=== PATIENT | female | born 1970 | race Caucasian/White ===

== ENCOUNTER → 2016-05-06 | Outpatient (CLI) | payer BC | LOC: COL.LAB 13:27 | DX: Z02.83 Encounter for blood-alcohol and blood-drug test (principal) ==

== ENCOUNTER 2018-07-11 08:55 | Day surgery (SDC) | payer BC ==
[~2018-07-11] VITALS: Ht 160 cm; Wt 69.5 kg
[2018-07-11] MEDS ORDERED: ZOLOFT 50MG50 MG PO (09:11)
[2018-07-11] MEDS ORDERED: CANASA 1000MG1000 MG RC (09:12)
[2018-07-11] MEDS ORDERED: ENTOCORT EC3 MG PO (09:13)
[2018-07-11] MEDS ORDERED: VITAMIND3 5000 IU (09:14)
[2018-07-11 09:31] VITALS: BP 115/75; PULSE 75; TEMP 97.8
[2018-07-11] MEDS ORDERED: ROWASA ENEMA60 ML RC (10:45)
[2018-07-11 10:50] VITALS: BP 137/88; PULSE 79; TEMP 98.1
--- NOTE | 2018-07-11 10:50 | NUR ---
Pt arrived to room from endo procedure. Pt A/Ox3. Pt walked to chair with steady gait, standby assist. Pt denies any nausea. Request water and crackers at this time. VSS. Pt's in room. CAll light in reach. Report received from CRYSTAL Mina.
[2018-07-11 11:05] VITALS: BP 134/71; PULSE 79; TEMP 98.1
--- NOTE | 2018-07-11 11:10 | NUR ---
Pt tolerating sips of water and crackers. Denies any nausea.
[2018-07-11 11:20] VITALS: BP 123/63; PULSE 78; TEMP 98.1
[2018-07-11 11:35] VITALS: BP 123/74; PULSE 68; TEMP 98.2
--- NOTE | 2018-07-11 12:00 | NUR ---
Discharge paperwork given to pt and pt's . Discussed discharge instructions, med list and procedure information. All questions answered to their satisfaction.
--- NOTE | 2018-07-11 12:10 | NUR ---
Pt discharged from [facility]. Pt left unit via wheelchair to private vehicle driven by .
== END 2018-07-11 12:10 | disposition home or self-care (01) ==
LOC: SDCO 08:55
DX: K51.311 Ulcerative (chronic) rectosigmoiditis with rectal bleeding (principal); K51.90 Ulcerative colitis, unspecified, without complications; Z79.899 Other long term (current) drug therapy
CPT/HCPCS: J2250; J2405; J3010; J7030

== ENCOUNTER 2021-09-15 07:25 | Day surgery (SDC) | payer OTHER ==
[~2021-09-15] VITALS: Ht 162.6 cm; Wt 73.4 kg
[~2021-09-15 07:25] MED LIST: CANASA 1000MG1000 MG RC; ENTOCORT EC3 MG PO; ROWASA ENEMA60 ML RC; VITAMIND3 5000 IU; ZOLOFT 50MG50 MG PO
[2021-09-15] MEDS ORDERED: CELEBREX 200MG200 MG PO (08:02)
[2021-09-15] MEDS ORDERED: VITAMINC1000TA (08:03)
[2021-09-15] MEDS ORDERED: PROBIOTIC (08:03)
[2021-09-15 08:12] VITALS: BP 118/55; PULSE 68; TEMP 98.4
--- NOTE | 2021-09-15 08:30 | NUR ---
MANAGER INTEL notified about PT history of N/V after Anesthesia, who recommended the ordered dose of Zofran. IV medication administered per protocol. PT verbalized understanding side effects prior to administration. Call freeman remains within reach.
[2021-09-15 09:50] VITALS: BP 104/48; PULSE 72; TEMP 98.4
--- NOTE | 2021-09-15 09:50 | NUR ---
pt returned to [facility] via cart from endo room, walked to chair. takes snack, in room, call light in reach, no c/o
[2021-09-15 10:05] VITALS: BP 108/65; PULSE 66
[2021-09-15 10:25] VITALS: BP 110/58; PULSE 68
--- NOTE | 2021-09-15 10:30 | NUR ---
into visit with pt, reviewed discharge inst. with pt on followup, precautions and printouts on procedure with verbal understanding. iv d'cd intact, pt up and dressed and discharged at 1035
== END 2021-09-15 10:45 | disposition home or self-care (01) ==
LOC: SDCO 07:25
DX: Z12.11 Encounter for screening for malignant neoplasm of colon (principal); K64.0 First degree hemorrhoids; K51.50 Left sided colitis without complications
CPT/HCPCS: J2405; J2704; J7030